=== PATIENT | male | born 1960 | race Caucasian/White ===

== ENCOUNTER → 2018-08-23 | Day surgery (SDC) | payer BC ==
[~2018-08-23] MED LIST: Ketorolac 30 MG/ML SDV IVPUSH ONE; Lactated Ringers 1,000 ML IV SCH; Lidocaine 1% with EPINEPHrine 1:100,000 20 ML MDV ONE; Midazolam 1 MG/ML 2 ML SDV IV ONE; Ondansetron 4 MG/2 ML SDV IV ONE; Propofol 200 MG/20 ML SDV IV ONE; ceFAZolin 1 GM Vial IVPUSH ONE; fentaNYL 100 MCG/2 ML SDV IV ONE
--- NOTE | 2018-08-23 11:48 | OR ---
DATE OF OPERATION: 08/23/2018 PREOPERATIVE DIAGNOSIS: LEFT INGUINAL HERNIA. POSTOPERATIVE DIAGNOSIS: LEFT DIRECT INGUINAL HERNIA. SURGEON: Mark Antonio MD PROCEDURE: OPEN REPAIR OF LEFT DIRECT INGUINAL HERNIA WITH MESH. ANESTHESIA: General. ESTIMATED BLOOD LOSS: Minimum. SPECIMEN: None. INDICATIONS: This 57-year-old male has a bulge in the left groin consistent with an inguinal hernia. DESCRIPTION OF PROCEDURE: After adequate preparation, a transverse incision was made in the left groin and carried down to the external abdominal oblique. This was then opened in the direction of the fibers and this exposed the cord in the inguinal canal. The cord was elevated out of the canal, and he was shown to have a direct inguinal hernia with a large amount of preperitoneal fat protruding through the Hesselbach triangle. The cord was elevated out of the way. A Prolene mesh was cut to the appropriate size and then sewn in place over the inguinal floor. This was in a running fashion along the inferior edge of the inguinal ligament and then interrupted underneath the rectus sheath. The keyhole was made and the cord brought through this and the tails folded laterally and sewn together. The external abdominal oblique was oversewn with a 2-0 Vicryl suture. 2-0 Vicryl was used for the subcutaneous space and 3-0 Vicryl for the skin. 10 mL of lidocaine was infused in the wound and the skin edges. The patient was taken to recovery room. MAX/GIORGIO /[id number]
== END ==
LOC: CC.SDS 08:01
PROVIDERS: ATTEND Surgery
DX: K40.90 Unilateral inguinal hernia, without obstruction or gangrene, not specified as recurrent (principal); I10 Essential (primary) hypertension; Z87.891 Personal history of nicotine dependence; Z79.899 Other long term (current) drug therapy; Z88.0 Allergy status to penicillin
CPT/HCPCS: J0690; J1885; J2250; J2405; J2704; J3010; J7120